=== PATIENT | female | born 2000 | race Caucasian/White ===

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

== ENCOUNTER 2023-07-26 20:57 | Emergency (ER) | payer OTHER ==
--- NOTE | 2023-07-26 22:34 | XR ---
EXAMINATION TYPE: XR chest 2V DATE OF EXAM: 07/26/2023 9:20 PM CLINICAL INDICATION:Female, 22 years old with history of cough/SOB; [facility] COMPARISON: None TECHNIQUE: XR chest 2V. Frontal PA and lateral views of the chest. FINDINGS: Lines/Tubes: None. Heart/mediastinum: Cardiomediastinal silhouette is well defined. Heart size is normal. Mediastinum appears normal. Pulmonary vascularity: Not increased, Lungs/Pleura: There is no evidence of pleural effusion, focal consolidation, or pneumothorax. Musculoskeletal: No acute osseous abnormality demonstrated in the limits of the exam. Slight asymmet fariha elevation of the right hemidiaphragm anteriorly, likely from eventration. Other findings: None. IMPRESSION: No acute cardiopulmonary abnormality.
[2023-07-26] MEDS ORDERED: IPRATROPIUM-ALBUTEROL 3 ML NEB INHALATION STA (23:56)
[2023-07-27] MEDS ORDERED: dexAMETHasone 2 MG TAB PO STA (00:19)
[2023-07-27] MEDS ORDERED: IPRATROPIUM-ALBUTEROL 3 ML NEB INHALATION STA (00:19)
[2023-07-27 00:21] VITALS: RESP 18
[2023-07-27 00:49] VITALS: BP 149/78; PULSE 80
--- NOTE | 2023-07-27 01:06 | ED ---
General Adult HPI - General Chief complaint: Shortness of Breath Stated complaint: RANGEL Time Seen by Provider: 07/26/23 23:38 Source: patient, RN notes reviewed Mode of arrival: ambulatory Limitations: no limitations - History of Present Illness Initial comments: This is a 22 year old female with past medical history significant for seasonal ALLERGIES presents emergency Department with a chief complaint of shortness of breath. Patient reports worsening shortness of breath over the last month however isn't provoked today. 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 She denies history of asthma. She did not take anything for his symptoms. She denies any chest pain, dyspnea,fever, palpitations. She denies recent travel or tobacco product use. - Related Data Previous Rx's Medication Instructions Recorded Doxycycline [Vibramycin] 100 mg PO BID 7 Days #14 cap 09/08/19 predniSONE 50 mg PO DAILY #5 tab 07/27/23 Allergies Allergy/AdvReac Type Severity Reaction Status Date / Time Penicillins Allergy Unknown Verified 07/26/23 21:00 Review of Systems ROS Statement: Those systems with pertinent positive or pertinent negative responses have been documented in the HPI. ROS Other: All systems not noted in ROS Statement are negative. Past Medical History Past Medical History: No Reported History History of Any Multi-Drug Resistant Organisms: None Reported Past Surgical History: Tonsillectomy Past Psychological History: No Psychological Hx Reported Past Alcohol Use History: None Reported Past Drug Use History: None Reported General Exam - General Exam Comments Initial Comments: General: Alert, in no acute distress Head: atraumatic normocephalic. Eyes PERRL, EOMI intact, mucous membranes moist Respiratory: Inspiratory and expiratory wheeze, no tachypnea Cardiovascular: Heart rate regular rate and Abdominal: Soft without guarding or rebound Extremities: Normal inspection with full range of motion and normal capillary refill Neuroogic: alert and oriented 3, CN II-XII intact, able to ambulate with steady gait Skin: warm dry and intact with normal color Limitations: no limitations Course Vital Signs 07/26/23 07/26/23 07/27/23 20:58 23:40 00:10 Temperature 98.9 F Pulse Rate 77 80 Respiratory 22 18 Rate Blood Pressure 145/91 O2 Sat by Pulse 95 Oximetry 07/27/23 07/27/23 07/27/23 00:17 00:34 00:40 Temperature Pulse Rate 76 78 80 Respiratory 18 Rate Blood Pressure 149/78 O2 Sat by Pulse 98 Oximetry 07/27/23 07/27/23 00:52 01:45 Temperature 97.9 F Pulse Rate 80 Respiratory Rate Blood Pressure O2 Sat by Pulse Oximetry - Reevaluation(s) Reevaluation #1: 07/27/23 01:06 Lung sounds with improvement of wheeze status post breathing treatment. Patient agreeable with the plan for discharge home Medical Decision Making - Medical Decision Making Was pt. sent in by a medical professional or institution (, [facility], [employer]IP STAMP STRAIGHTENER, urgent care, hospital, or retirement...) When possible be specific @ -[No] Did you speak to anyone other than the patient for history (EMS, parent, family, police, friend...)? What history was obtained from this source @ -[No] Did you review nursing and triage notes (agree or disagree)? Why? @ -[I reviewed and agree with nursing and triage notes] Were old charts reviewed (outside hosp., previous admission, EMS record, old EKG, old radiological studies, urgent care reports/EKG's, retirement records)? Report findings @ -[No old charts were reviewed] Differential Diagnosis (chest pain, altered mental status, abdominal pain women, abdominal pain men, vaginal bleeding, weakness, fever, dyspnea, syncope, headache, dizziness, GI bleed, back pain, seizure, CVA, palpatations, mental health, musculoskeletal)? @ -[not applicable] EKG interpreted by me (3pts min.). @ -[As above] X-rays interpreted by me (1pt min.). @ -Chest x-ray does not reveal any focal consolidation CT interpreted by me (1pt min.). @ -[None done] U/S interpreted by me (1pt. min.). @ -[None done] What testing was considered but not performed or refused? (CT, X-rays, U/S, labs)? Why? @ -[None] What meds were considered but not given or refused? Why? @ -[None] Did you discuss the management of the patient with other professionals (professionals i.e. JENNY Mosqueda, STRIP STAMP STRAIGHTENER, lab, RT, psych nurse, social welfare administrator, product development chemist, teacher, certification officer, home health care case manager)? Give summary @ -[No] Was smoking cessation discussed for >3mins.? @ -[No] Was critical care preformed (if so, how long)? @ -[No] Were there social determinants of health that impacted care today? How? (Homelessness, low income, unemployed, alcoholism, drug addiction, transportation, low edu. Level, literacy, decrease access to med. care, fdc, rehab)? @ -[No] Was there de-escalation of care discussed even if they declined (Discuss DNR or withdrawal of care, Hospice)? DNR status @ -[No] What co-morbidities impacted this encounter? (DM, HTN, Smoking, COPD, CAD, Cancer, CVA, ARF, Chemo, Hep., AIDS, mental health diagnosis, sleep apnea, morbid obesity)? @ -[None] Was patient admitted / discharged? Hospital course, mention meds given and route, prescriptions, significant lab abnormalities, going to OR and other pertinent info. @ Discharged. This is a 22 year old female who presents to the emergency department with shortness of breath. Patient had thorough history and exam performed. Vital signs stable. Physical exam is unremarkable. Heart rate reguar rate and rhythm, lungs with diffuse wheezes., abdomen soft non-tender. Patient's oxygen saturation between 96-98% on room air. Patient had vitals AND chest x-ray looked unremarkable. She is provided 2 albuterol treatments with symptomatic improvement. Patient given Ventolin inhaler and steroids upon discharge. I discussed the results in detail with the patient verbalized understanding all questions were addressed. Return precautions discussed at length. Discharged in stable condition with recommended close follow-up with PCP in 1-2 days. Case discussed with CASH Barron who agrees with plan of care. Undiagnosed new problem with uncertain prognosis? @ -[No] Drug Therapy requiring intensive monitoring for toxicity (Heparin, Nitro, Insulin, Cardizem)? @ -[No] Were any procedures done? @ -[No] Diagnosis/symptom? @ -Shortness of Breath Acute, or Chronic, or Acute on Chronic? @ -Acute Uncomplicated (without systemic symptoms) or Complicated (systemic symptoms)? @ -Uncomplicated Side effects of treatment? @ -[No] Exacerbation, Progression, or Severe Exacerbation? @ -[No] Poses a threat to life or bodily function? How? (Chest pain, [place], [place], pneumonia, PE, COPD, DKA, ARF, appy, cholecystitis, CVA, Diverticulitis, Homicidal, Suicidal, threat to staff... and all critical care pts) @ -Low likelihood - Lab Data Lab Results 07/26/23 Range/Units 21:02 Influenza Type A (PCR) Not Detected (Not Detectd) Influenza Type B (PCR) Not Detected (Not Detectd) RSV (PCR) Not Detected (Not Detectd) SARS-CoV-2 (PCR) Not Detected (Not Detectd) Disposition Clinical Impression: Shortness of breath, Wheezing Disposition: HOME SELF-CARE Condition: Stable Instructions (If sedation given, give patient instructions): Asthma (ED) Additional Instructions: Please take albuterol inhaler every 4 hours Please take daily for the next 5 days Please return to the nearest emergency department if worsening shortness of breath or productive cough or high fever develops Prescriptions: predniSONE 50 mg PO DAILY #5 tab Is patient prescribed a controlled substance at d/c from ED?: No Referrals: Attila Haley MD [Primary Care Provider] - 1-2 days Time of Disposition: 01:07
[2023-07-27] MEDS ORDERED: ALBUTEROL HFA INHALER INHALATION STA (01:07)
[2023-07-27 02:04] VITALS: TEMP 97.9
== END 2023-07-27 01:45 | disposition home or self-care (01) ==
LOC: EC 20:57
DX: R06.02 Shortness of breath (principal); R06.2 Wheezing; Z88.0 Allergy status to penicillin; Z20.822 Contact with and (suspected) exposure to COVID-19
CPT/HCPCS: 99285 ×2; 94640 ×2; 87636; 71046; J8540